=== PATIENT | female | born 1975 ===

== ENCOUNTER 2024-10-06 06:22 | Day surgery (SDC) | payer BC, SELFPAY | END 2024-10-06 12:23 | disposition home or self-care (01) | LOC: GI 06:22 | PROVIDERS: ATTENDING PHYSICIAN Internal Medicine Gastroenterology | DX: R19.4 Change in bowel habit (principal); K64.8 Other hemorrhoids; K64.4 Residual hemorrhoidal skin tags | CPT/HCPCS: 45378 ==